=== PATIENT | female | born 1990 | race Caucasian/White ===

== ENCOUNTER 2021-12-26 05:35 | Emergency (ER) | payer BC, SELFPAY ==
[2021-12-26] VITALS (7 sets, daily range): BP systolic 118–141; BP diastolic 76–97; PULSE 85–99; RESP 18; TEMP 37.9; O2SAT 97–98
--- NOTE | 2021-12-26 06:12 | CRLHL7_ITS ---
For Patients: As a result of the Century Cures Act, medical imaging exams and procedure reports are released immediately into your electronic medical record. You may view this report before your referring provider. If you have questions, please contact your health care provider. Indication: Fever. Headache. Vomiting. Technique: Performed without IV contrast. Comparison: None available. Findings: No mass lesion or ventricular obstruction. No hemorrhage is identified. No brain edema or ischemia is localized on this exam. No encephalomalacia. Slight cerebellar tonsillar ectopia; no Chiari. The calvarium and skull base are unremarkable, with normal aeration of the visualized petrous temporal bones and paranasal sinuses on both sides. Impression: CT head within normal limits. Please note that all CT scans at this facility use dose modulation, iterative reconstruction, and/or weight-based dosing when appropriate to reduce radiation dose to as low as reasonably achievable. Dictated by Abhniav Hernandez MD @ 12/26/2021 7:45:57 AM (Electronically Signed)
--- NOTE | 2021-12-26 06:12 | CRLHL7_ITS ---
For Patients: As a result of the Cures Act, medical imaging exams and procedure reports are released immediately into your electronic medical record. You may view this report before your referring provider. If you have questions, please contact your health care provider. INDICATION: FEVER INDICATION: Fever. TECHNIQUE: Chest 1 view. COMPARISON: None FINDINGS: Cardiovascular and mediastinum: Heart size and vasculature are normal in caliber and appearance. Mediastinum is within normal limits. Lungs and pleural space: Lungs are clear. No sign of infiltrate or mass. No sign of pleural effusion. No pneumothorax. Bones and soft tissues: No significant findings. IMPRESSION: Lungs are clear. Dictated by Tiburcio Aparicio MD @ 12/26/2021 7:23:58 AM Dictated by: Tiburcio Aparicio MD @ 12/26/2021 07:24:07 (Electronically Signed)
--- NOTE | 2021-12-26 06:16 | ED.HA ---
HPI - Headache General Time Seen by Provider: 06:00 Date Seen: 12/26/21 Chief Complaint: Headache/Migraine Stated Complaint: vomiting/nausea/fever Time Seen by Provider: 12/26/21 05:50 Source: patient, family, RN notes reviewed and old records reviewed Mode of arrival: wheelchair Limitations: no limitations History of Present Illness HPI Narrative: Patient is a 31-year-old female previously healthy who comes to the emergency room for evaluation of fever and headache. Patient notes that over the past month she has had a headache when she stands up. She states this lasts about 30 seconds feels like somebody is squeezing her head and describes it as a sharp pressure. It then goes away. In the last week she notes that it has now started to occur randomly when she is walking. She describes dizziness when this happens. She I do ask her if the room is moving or if she is lightheaded and she says some of both. Last night patient was playing softball and she did not feel quite right. She states that she had the onset of chest tightness neck pain headache and fever. They noted that her temp was a 100.8? last night at 2100 hours she took Tylenol and went to bed. At 0430 hours she had a temp of a 101.8?. She notes that she feels like vomiting because she is dizzy. She states that the pain in her neck starts in her shoulders and upper back radiates into her neck and, to the back of her head and then comes around to the front of the head. She is describing as somebody squeezing her skull. She has had no visual changes. She does have a sore throat that started yesterday. To her knowledge she has not had any exposures to strep or COVID. She notes that her whole body aches but she denies any localized weakness. She has not had a history of headaches in the past. She denies any trauma. Related Data Home Medications Medication Instructions Recorded Confirmed No Known Home Medications 12/26/21 12/26/21 Allergies Allergy/AdvReac Type Severity Reaction Status Date / Time erythromycin base Allergy Verified 12/26/21 05:58 Review of Systems Status of ROS: Reports: 10 or more systems reviewed and unremarkable except as noted in History and below Const: Reports: fever, chills and fatigue Eyes: Denies: change in vision ENMT: Reports: throat pain, neck pain and dry mouth; Denies: throat swelling or nasal discharge Cardio: Reports: chest pain (Worsened with deep breathing); Denies: shortness of breath with exertion Resp: Denies: shortness of breath or cough GI: Reports: nausea and vomiting; Denies: abdominal pain or diarrhea : Denies: painful urination or urinary frequency Musculo: Reports: neck pain Integ/Breast: Denies: rash or redness Neuro: Reports: headache and dizziness; Denies: numbness in extremities or weakness in extremities Endo: Reports: fatigue Allergy/Immuno: Denies: throat swelling [facility] Medical History No significant past medical history Social History Smoking Status: Never smoker Do you use any of these nicotine containing products: None Second hand tobacco smoke exposure: No How often do you have a drink containing alcohol: 2-4 times a month How many standard drinks containing alcohol do you have on a typical day: 1 or 2 How often do you have six or more drinks on one occasion: Never AUDIT-C Alcohol total score: 2 Non-prescribed substance use: denies use service: No Exam Const: Vital Signs, click to edit/add: Vital Signs - 24 hr 12/26/21 05:48 12/26/21 08:12 12/26/21 08:42 Temperature 100.3 F H Pulse Rate [Right Pulse Oximeter] 97 87 Pulse Rate [orthos tatic lying Right Pulse Oximeter] 88 Pulse Rate [orthos tatic sitting Righ t Pulse Oximeter] Pulse Rate [orthos tatic standing Rig ht Pulse Oximeter] Respiratory Rate 18 18 Blood Pressure [Ri ght Upper Arm] 141/90 H 134/83 Blood Pressure [or thostatic lying Ri ght Arm] 132/76 Blood Pressure [or thostatic sitting Right Arm] Blood Pressure [or thostatic standing Right Arm] Pulse Oximetry 97 97 Oxygen Delivery Me thod Room Air Room Air 12/26/21 08:43 12/26/21 08:43 Temperature Pulse Rate [Right Pulse Oximeter] Pulse Rate [orthos tatic lying Right Pulse Oximeter] 88 Pulse Rate [orthos tatic sitting Righ t Pulse Oximeter] 91 91 Pulse Rate [orthos tatic standing Rig ht Pulse Oximeter] 99 Respiratory Rate Blood Pressure [Ri ght Upper Arm] Blood Pressure [or thostatic lying Ri ght Arm] 132/76 Blood Pressure [or thostatic sitting Right Arm] 118/83 118/83 Blood Pressure [or thostatic standing Right Arm] 119/88 Pulse Oximetry Oxygen Delivery Me thod Documenting provider has reviewed patient's vital signs: yes Common normals: average body habitus, oriented x3, no limitations and healthy appearing General appearance: cooperative, well kempt and in distress (Mild) mild; not ill appearing Orientation/consciousness: Yes awake, Yes oriented to person, Yes oriented to place and Yes oriented to time HENMT: Common normals: normocephalic, head/scalp atraumatic, hearing grossly normal bilaterally, external ears normal, EAC's normal, TM's normal bilaterally and external nose normal Head and scalp: normocephalic and atraumatic Face and sinus: normal facial exam and face symmetric Nose: external nose normal External ear: external ears normal External auditory canal: EAC's normal Tympanic membrane: TM's normal bilaterally Mouth: lip normal, tongue normal and other (Mild erythema posterior oropharynx) Eye: Common normals: PERRL General eye: normal appearance of both eyes and normal light reflex Pupil: PERRL Direct Ophthalmoscopy: normal light reflex Neck & C-Spine: Common normals: full ROM and supple General: trachea midline, lymphadenopathy (Mild upper anterior cervical) and tenderness Cervical spine: cervical ROM normal Other: Patient noted to have spontaneous movement of the neck. However became guarded with targeted examination of the neck. Resp: Common normals: normal respiratory effort and clear to auscultation bilaterally Effort & inspection: able to speak in complete sentences Auscultation: clear to auscultation bilaterally Cardio: Common normals: regular rate and regular rhythm Rate: regular rate Rhythm: regular rhythm GI: Common normals: soft to palpation and non-tender Palpation: soft Extremity: Common normals: normal to inspection Neuro: Common normals: oriented x3, moves all extremities, no focal motor deficits and no sensory deficits noted Sensorium/orientation: awake, oriented to person, oriented to place, oriented to time and other (Fatigued but nontoxic in appearance) Meningeal signs: no nuccal rigidity, no Brudzinski's sign and no Kernig's sign Speech: speech normal Psych: Common normals: mental status grossly normal, thought process normal and speech normal Appearance: well kempt Speech: normal speech Thought process: normal thought process Skin: Common normals: no rashes or lesions noted General skin exam: no rashes or lesions noted Course Course Hospital Course: At this time differential diagnosis does include meningitis, COVID, strep, intracranial pathology, mono other viral illness, pneumonia. Will obtain CBC, comprehensive panel, CRP, lactate, urinalysis, COVID, strep. Will place IV for fluids pain control and antiemetics. Chest x-ray and head CT have also been ordered. Reevaluation(s) Reevaluation #1: At this time headache is not changed. Nausea has improved. I spoke to patient about using Reglan and Benadryl as means of pain relief. Still awaiting laboratory values. Reevaluation #2: Patient notes headache is improved from a 9/10 to a 7/10. She has a negative straight leg raise. When I lift her right leg her right leg hurts. She has no neck pain however when she tries to do chin to chest she does have neck discomfort. At this time we talked about risks benefits of a lumbar puncture. In light of the fact that she is negative for COVID, chest x-ray looks good but she has ongoing fever will add West Nile, tick panel and blood cultures to her blood work Vital Signs Vital signs: Initial Vital Signs Temperature 100.3 F H 12/26/21 05:48 Temperature Source Temporal Artery Scan 12/26/21 05:48 Pulse Rate 97 12/26/21 05:48 Pulse Rhythm 12/26/21 05:48 Respiratory Rate 18 12/26/21 05:48 Blood Pressure 141/90 H 12/26/21 05:48 Blood Pressure Mean 107 12/26/21 05:48 Blood Pressure Position Supine 12/26/21 05:48 Pulse Oximetry 97 12/26/21 05:48 Oxygen Delivery Method 12/26/21 05:48 Vital Signs Temperature 100.3 F H 12/26/21 05:48 Pulse Rate 97 12/26/21 05:48 Respiratory Rate 18 12/26/21 05:48 Blood Pressure 141/90 H 12/26/21 05:48 Pulse Oximetry 97 12/26/21 05:48 Oxygen Delivery Method 12/26/21 05:48 Temperature 100.3 F H 12/26/21 05:48 Pulse Rate 88 12/26/21 08:43 Respiratory Rate 18 12/26/21 08:12 Blood Pressure 132/76 12/26/21 08:43 Pulse Oximetry 97 12/26/21 08:12 Oxygen Delivery Method 12/26/21 08:12 MDM - Headache MDM Narrative Medical decision making narrative: 1. Fever with headache body aches. I was very surprised that she did not test positive for COVID. At this time no evidence of pneumonia and a urinalysis is currently pending. At this time I do suggest lumbar puncture given her neck pain. Patient is somewhat improved but not entirely improved at this time. 2. Arrhythmia-patient appears to have a an independent pathway. Initially I thought this was bigeminy. We have asked for Cardiology consultation and currently waiting a phone call. 3. Sore throat-negative for strep and COVID is negative. 4. Disposition-this patient is signed out to my partner Dr. Knutson. Medical Records Attestation: I reviewed the patient's medical records. Lab Data Attestation: I reviewed the patient's lab results. Labs: Lab Results 12/26/21 12/26/21 12/26/21 Range/Units 06:12 06:12 06:12 WBC 10.41 (4.50-11.00) K/uL RBC 4.51 (4.00-5.20) m/uL Hgb 13.4 (12.0-16.0) gm/dL Hct 38.6 (33.0-51.0) % MCV 86 (80-100) fL MCH 30 (26-34) pg MCHC 35 (32-36) gm/dL RDW Coeff of Karla 11.8 (11.5-15.5) % Plt Count 285 (140-440) K/uL Neut % (Auto) 85.9 H (42.0-72.0) % Lymph % (Auto) 6.7 L (20-44) % [place] % (Auto) 6.3 (0.0-11.0) % Eos % (Auto) 0.0 (0.0-7.0) % Baso % (Auto) 0.3 (0.0-3.0) % Neut # (Auto) 8.90 H (1.7-7.0) K/uL Lymph # (Auto) 0.70 L (0.90-2.90) K/uL [place] # (Auto) 0.70 (0.00-0.90) K/UL Eos # (Auto) 0.00 (0.00-0.50) K/uL Baso # (Auto) 0.03 (0.00-0.30) K/uL Abs Immat Gran (auto) 0.08 (0.00-0.30) K/uL Sodium (135-149) mmol/L Potassium (3.6-5.1) mmol/L Chloride (96-114) mmol/L Carbon Dioxide (20-32) mmol/L BUN (5-24) mg/dL Creatinine (0.5-1.5) mg/dL Estimated GFR ml/min Glucose (60-115) mg/dL Venous Lactic Acid (Serial Order) Calcium (8.4-10.6) mg/dL Magnesium (1.5-2.6) mg/dL Total Bilirubin (0.1-1.5) mg/dL AST (12-35) U/L ALT (4-35) U/L Alkaline Phosphatase (40-150) U/L Total Creatine Kinase (41-117) U/L Troponin I (0.01-0.04) ng/mL C-Reactive Protein (0.5-1.0) mg/dL Total Protein (6.0-8.3) g/dL Albumin (3.3-5.0) g/dL SARS-CoV-2 (PCR) (Negative) Influenza Type A (PCR) (Negative) Influenza Type B (PCR) (Negative) Group A Strep DNA NOT DETECTED (No Detected) 12/26/21 12/26/21 12/26/21 Range/Units 06:12 06:16 06:25 WBC (4.50-11.00) K/uL RBC (4.00-5.20) m/uL Hgb (12.0-16.0) gm/dL Hct (33.0-51.0) % MCV (80-100) fL MCH (26-34) pg MCHC (32-36) gm/dL RDW Coeff of Karla (11.5-15.5) % Plt Count (140-440) K/uL Neut % (Auto) (42.0-72.0) % Lymph % (Auto) (20-44) % [place] % (Auto) (0.0-11.0) % Eos % (Auto) (0.0-7.0) % Baso % (Auto) (0.0-3.0) % Neut # (Auto) (1.7-7.0) K/uL Lymph # (Auto) (0.90-2.90) K/uL [place] # (Auto) (0.00-0.90) K/UL Eos # (Auto) (0.00-0.50) K/uL Baso # (Auto) (0.00-0.30) K/uL Abs Immat Gran (auto) (0.00-0.30) K/uL Sodium 135 (135-149) mmol/L Potassium 3.5 L (3.6-5.1) mmol/L Chloride 103 (96-114) mmol/L Carbon Dioxide 24 (20-32) mmol/L BUN 8 (5-24) mg/dL Creatinine 0.6 (0.5-1.5) mg/dL Estimated GFR 121 ml/min Glucose 124 H (60-115) mg/dL Venous Lactic Acid (Serial Order) Calcium 8.2 L (8.4-10.6) mg/dL Magnesium 1.7 (1.5-2.6) mg/dL Total Bilirubin 0.6 (0.1-1.5) mg/dL AST 41 H (12-35) U/L ALT 43 H (4-35) U/L Alkaline Phosphatase 79 (40-150) U/L Total Creatine Kinase (41-117) U/L Troponin I < 0.01 L (0.01-0.04) ng/mL C-Reactive Protein 1.6 H (0.5-1.0) mg/dL Total Protein 6.8 (6.0-8.3) g/dL Albumin 4.0 (3.3-5.0) g/dL SARS-CoV-2 (PCR) Negative SARS-CoV-2 (Negative) Influenza Type A (PCR) Negative PCR FLU A (Negative) Influenza Type B (PCR) Negative PCR FLU B (Negative) Group A Strep DNA (No Detected) 12/26/21 Range/Units 06:25 WBC (4.50-11.00) K/uL RBC (4.00-5.20) m/uL Hgb (12.0-16.0) gm/dL Hct (33.0-51.0) % MCV (80-100) fL MCH (26-34) pg MCHC (32-36) gm/dL RDW Coeff of Karla (11.5-15.5) % Plt Count (140-440) K/uL Neut % (Auto) (42.0-72.0) % Lymph % (Auto) (20-44) % [place] % (Auto) (0.0-11.0) % Eos % (Auto) (0.0-7.0) % Baso % (Auto) (0.0-3.0) % Neut # (Auto) (1.7-7.0) K/uL Lymph # (Auto) (0.90-2.90) K/uL [place] # (Auto) (0.00-0.90) K/UL Eos # (Auto) (0.00-0.50) K/uL Baso # (Auto) (0.00-0.30) K/uL Abs Immat Gran (auto) (0.00-0.30) K/uL Sodium (135-149) mmol/L Potassium (3.6-5.1) mmol/L Chloride (96-114) mmol/L Carbon Dioxide (20-32) mmol/L BUN (5-24) mg/dL Creatinine (0.5-1.5) mg/dL Estimated GFR ml/min Glucose (60-115) mg/dL Venous Lactic Acid (Serial Order) Calcium (8.4-10.6) mg/dL Magnesium (1.5-2.6) mg/dL Total Bilirubin (0.1-1.5) mg/dL AST (12-35) U/L ALT (4-35) U/L Alkaline Phosphatase (40-150) U/L Total Creatine Kinase 70 (41-117) U/L Troponin I (0.01-0.04) ng/mL C-Reactive Protein (0.5-1.0) mg/dL Total Protein (6.0-8.3) g/dL Albumin (3.3-5.0) g/dL SARS-CoV-2 (PCR) (Negative) Influenza Type A (PCR) (Negative) Influenza Type B (PCR) (Negative) Group A Strep DNA (No Detected) Imaging Data CT scan - head: Attestation: I have reviewed the pertinent imaging results. My impression: No acute findings Radiologist's impression: No acute findings Chest x-ray: Attestation: I have reviewed the pertinent imaging results. My impression: No obvious infiltrates Radiologist's impression: No obvious infiltrates ECG Data Attestation: I personally reviewed and interpreted this ECG as follows: ECG interpretation date: 12/26/21 Interpretation: Patient has an overriding sinus rhythm. No acute ST or T-wave changes. She then has a rather regular an independent downgoing narrow complex. Awaiting cardiac consultation. Discharge Plan Discharge Prescriptions: No Action No Known Home Medications
[2021-12-26] MEDS: ONDANSETRON 2 MG/ML inj 4 MG IVP (06:28)
[2021-12-26] MEDS: KETOROLAC 15 MG/ML inj IVP (06:28)
[2021-12-26] MEDS: 0.9 % SODIUM CHLORIDE 1000 ml 1,000 ML IV (06:28)
[2021-12-26 06:33] LABS: Basophils Absolute Auto 0.03 K/uL (0.00-0.30); Basophils Percent Auto 0.3 % (0.0-3.0); Hematocrit 38.6 % (33.0-51.0); Hemoglobin* 13.4 gm/dL (12.0-16.0); Immature Granulocytes Abs Auto 0.08 K/uL (0.00-0.30); Lymphocytes Percent Auto 6.7 % (20-44); Mean Corpuscular HGB Conc 35 gm/dL (32-36); Mean Corpuscular Hemoglobin 30 pg (26-34); Mean Corpuscular Volume 86 fL (80-100); Monocytes Percent Auto 6.3 % (0.0-11.0); Neutrophils Percent Auto 85.9 % (42.0-72.0); Platelet Count* 285 K/uL (140-440); RDW Coefficient of Variation % 11.8 % (11.5-15.5); Red Blood Count 4.51 m/uL (4.00-5.20); White Blood Count* 10.41 K/uL (4.50-11.00)
[2021-12-26 06:34] LABS: Lactate Sepsis w/Reflex* 1.3 mmol/L (0.5-1.9)
[2021-12-26 06:53] LABS: Chloride* 103 mmol/L (96-114); Potassium* 3.5 mmol/L (3.6-5.1); Sodium* 135 mmol/L (135-149)
[2021-12-26 06:55] LABS: Bilirubin Total* 0.6 mg/dL (0.1-1.5); Creatine Kinase* 70 U/L (41-117); Creatinine* 0.6 mg/dL (0.5-1.5); Estimated Glomerular Filt Rate 121 ml/min
[2021-12-26 06:56] LABS: Alanine Aminotransferase* 43 U/L (4-35); Alkaline Phosphatase* 79 U/L (40-150); Aspartate Amino Transferase* 41 U/L (12-35); Blood Urea Nitrogen* 8 mg/dL (5-24); Carbon Dioxide* 24 mmol/L (20-32); Total Protein* 6.8 g/dL (6.0-8.3)
[2021-12-26] MEDS: diphenhydrAMINE 50 MG/ML inj IVP (06:56)
[2021-12-26] MEDS: METOCLOPRAMIDE HCL 10 MG in 0.9 % SODIUM CHLORIDE 100 ml 100 ML 306 MG IVPB (06:56)
[2021-12-26 06:57] LABS: Calcium* 8.2 mg/dL (8.4-10.6); Glucose* 124 mg/dL (60-115)
[2021-12-26 06:58] LABS: Strep A DNA Probe* NOT DETECTED (No Detected)
[2021-12-26 06:59] LABS: C Reactive Protein* 1.6 mg/dL (0.5-1.0)
[2021-12-26 07:08] LABS: Slide Review Reflex No
[2021-12-26 07:10] LABS: PCR FLU A Negative PCR FLU A (Negative); PCR FLU B Negative PCR FLU B (Negative)
[2021-12-26 07:10] LABS: Troponin I* < 0.01 ng/mL (0.01-0.04)
[2021-12-26 07:26] LABS: SARS PCR* Negative SARS-CoV-2 (Negative)
[2021-12-26 07:27] LABS: Magnesium* 1.7 mg/dL (1.5-2.6)
--- NOTE | 2021-12-26 08:33 | ED.NURSE ---
pt declined 2nd blood culture draw
[2021-12-26 09:05] LABS: Mono Screen* Negative (Negative)
[2021-12-26] MEDS: KETAMINE HCL 20 MG in 0.9 % SODIUM CHLORIDE 100 ml 100 ML 300.6 MG IVPB (10:30)
--- NOTE | 2021-12-26 11:03 | CRLHL7_ITS ---
For Patients: As a result of the Century Cures Act, medical imaging exams and procedure reports are released immediately into your electronic medical record. You may view this report before your referring provider. If you have questions, please contact your health care provider. INDICATION: Orthostatic headaches. TECHNIQUE: Sagittal and axial T1, axial FLAIR, T2, diffusion-weighted, susceptibility weighted gadolinium-enhanced axial and coronal T1 weighted images. COMPARISON: CT brain on 10/26/2021. FINDINGS: There is an extra-axial, mildly heterogeneous, centrally enhancing mass centered within the right cerebellopontine angle cistern and porous acusticus with mild mass effect on the adjacent benja and anterior right cerebellar hemisphere. Enhancement does not extend into the lateral internal auditory canal. This mass measures approximately 2.8 cm transverse x 2.6 cm AP x 2.7 cm in cephalocaudal dimensions. Mild associated edema within the right cerebellar hemisphere. There is associated effacement and slight leftward displacement of the 4th ventricle shifted just to the left of midline. There is deformity of the lateral benja of the pre pontine cistern is intact. There is no tonsillar herniation. No in other enhancing intra-axial or extra-axial lesions. No evidence of recent ischemic infarction. No evidence of intracranial hemorrhage. Impression : 1. 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 2. Associated mass effect on the benja and cerebellum with slight leftward deviation of the 4th ventricle. No obstructive hydrocephalus. Dictated by Obed Adams MD @ 12/26/2021 12:38:41 PM (Electronically Signed)
--- NOTE | 2021-12-26 11:13 | ED.NURSE ---
up to bathroom, urine collected and sent
[2021-12-26 11:53] LABS: Appearance Urine Clear (Clear); Bilirubin Urine Negative (Negative); Blood Urine Trace-lysed (Negative); Color Urine Yellow (Yellow); Glucose Urine Negative (Negative); Ketones Urine Trace (Negative); Leukocyte Esterase Urine Negative (Negative); Nitrite Urine Negative (Negative); Protein Urine Negative (Negative); Urobilinogen Urine 0.2 (0.2-1.0)
[2021-12-26 11:54] LABS: HCG Qualitative* Negative (Negative)
[2021-12-26 12:04] LABS: Bacteria Urine Few; Mucus Urine Many; Squamous Epithelial Cell Urine Moderate (None-Few); WBC Urine 0-2 (0-5)
--- NOTE | 2021-12-26 12:26 | ED.NURSE ---
return from MRI. continues with headache and dizziness. at bedside.
[2021-12-26] MEDS: HYDROmorphone 0.5 mg/0.5 ml inj IVP (13:17)
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
[2021-12-29 10:53] LABS: Anaplasma phagocyt PCR Not Detected; Babesia microti by PCR Not Detected; Babesia species by PCR Not Detected; Ehrlichia chaffeensis by PCR Not Detected; Ehrlichia ewingii/canis by PCR Not Detected; Ehrlichia muris-like by PCR Not Detected
== END 2021-12-26 15:52 | disposition home or self-care (01) ==
PROVIDERS: Family Medicine; Emergency Provider Family Medicine; PCP Family Medicine
DX: R50.9 Fever, unspecified (principal); J02.9 Acute pharyngitis, unspecified; I49.8 Other specified cardiac arrhythmias
CPT/HCPCS: 36415; 70450; 70553; 71045; 80053; 81001; 82550; 83735; 84484; 84703; 85025; 86140; 86308; 86789; 87040; 87086; 87502; 87635; 87651; 87798; 93005; 93225; 93226; 96365; 96375; 99285; A9575; J1170; J1200; J1885; J2405; J2765; J3490; J7030

== ENCOUNTER 2024-08-04 19:01 | Emergency (ER) | payer OTHER, SELFPAY ==
--- OUTSIDE RECORDS SUMMARY | 2024-08-04 19:04 | XMS_ITS | Encounter Summary ---
Author Organization [facility] Address [address] [place] [id number] Care Team Providers Care Campaign Advisor Name Role Phone Rosaura Enriquez MD Unavailable [phone] Mare Wilkes MD Unavailable [phone] Rosaura Enriquez MD Unavailable [phone] Mare Wilkes MD Unavailable [phone] Nano Panda MD Primary Care Provider [phone] Encounter Details Date Type Department Care Team (Late st Contact Info) Description 06/04/2023 [facility] Medical Advice [facility] [address] [id number] Leia Barber RN Social History Tobacco Use Types Packs/Day Years Used Date Smoking Tobacco: Never Smokeless Tobacco: Never Alcohol Use Standard Drinks/Week Comments No 0 (1 standard drink = 0.6 oz pur e alcohol) PHQ-2 Answer Date Recorded PHQ-2 Score 0 12/25/2018 Adolescent Education Answer Date Record ed Getting School Help Needed Not on file 01/25 Comments No Sex and Gender Information Value Date Recorded Sex Assigned at Female 03/29/2021 12:51 PM ONLINE ADVERTISING MANAGER Legal Sex Female 5:15 AM ONLINE ADVERTISING MANAGER Gender Identity Female 03/29/2021 12:51 PM ONLINE ADVERTISING MANAGER Sexual Orientation Straight 03/29/2021 12 :51 PM ONLINE ADVERTISING MANAGER documented as of this encounter Plan of Treatment Not on file documented as of this encounter Visit Diagnoses Not on filedocumented in this encounter Additional Health Concerns Assessment Noted Time PHQ-9 Depression Total Score: 3 12/26/19 19 2:57 PM CDT documented as of this encounter Care Teams Campaign Advisor Relationship Specialty Start Date End Date Nano Panda MD [address] [place] [address] PCP - General Family Medicine 05/14/23 Rosaura Enriquez MD [address] [place] [address] Facial Plastic and Reconstructive Surgery 11/23/22 Mare Wilkes MD [address] [place] [id number] Physician Psychiatry & Neurology - Child & Adolescent Psychiatry 11/23/22 Rosaura Enriquez MD [address] [place] [address] Assigned Surgical Provider 11/24/22 Mare Wilkes MD [address] [place] [id number] Assigned Neuroscience Provider 01/05/23 05/27/24 documented as of this encounter
--- OUTSIDE RECORDS SUMMARY | 2024-08-04 19:04 | XMS_ITS | Clinical Summary ---
Author Organization [facility] Address [address] [place] [address] Care Team Providers Care Education Intern Name Role Phone Rosaura Enriquez MD Unavailable [phone] Mare Wilkes MD Unavailable [phone] Rosaura Enriquez MD Unavailable [phone] Nano Panda MD Primary Care Provider [phone] Allergies Active Allergy Reactions Criticality Noted Date Comments Copper 11/20/2022 Erythromycin 03/26/2011 Minocycline 11/20/2022 Medications * This document contains information received from the source organization and may not represent a complete record from that organization. 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 Date Type Department Care Team Description 05/18/2024 Travel from Last 3 Months Family History Medical History Relation Comments Hip fracture Maternal Aunt Osteoporosis Maternal Aunt Osteoporosis Maternal Grandfather Thyroid Disease Maternal Grandfather Ovarian Cancer Maternal Grandmother Heart Disease Paternal Grandfather Hyperlipidemia Paternal Grandfather Hypertension Paternal Grandfather Relation Status Comments Maternal Aunt Maternal Grandfather Maternal Grandmother Paternal Grandfather Social History Tobacco Use Types Packs/Day Years [...] Sex Assigned at Female 03/29/2021 12:51 PM TRAINING ENGINEER Legal Sex Female 5:15 AM TRAINING ENGINEER Gender Identity Female 03/29/2021 12:51 PM TRAINING ENGINEER Sexual Orientation Straight 03/29/2021 12 :51 PM TRAINING ENGINEER Last Filed Vital Signs Vital Sign Reading Time Taken Comments Blood Pressure 115/78 05/28/2023 8:02 PM TRAINING ENGINEER Pulse 92 05/28/2023 8:02 PM TRAINING ENGINEER Temperature 37.1 C (98.7 F) 05/28/2023 8:02 PM TRAINING ENGINEER Respiratory Rate 12 05/28/2023 8:02 PM TRAINING ENGINEER Oxygen Saturation 95% 05/28/2023 8:02 PM TRAINING ENGINEER Inhaled Oxygen Concentration - - Weight 72.7 kg (160 lb 4.4 oz) 05/28/2023 9:28 A M TRAINING ENGINEER Height 167.6 cm (5' 6) 05/28/2023 9:28 AM TRAINING ENGINEER Body Mass Index 25.87 05/28/2023 9:28 AM TRAINING ENGINEER Plan of Treatment Health Maintenance Due Date Last Done Comments ADVANCE CARE PLANNING 1988 ANNUAL REVIEW OF HM ORDERS 1988 YEARLY PREVENTIVE VISIT 10/12/1991 HEPATITIS C SCREENING 2006 DIABETES SCREENING 03/05/2019 03/05/2016 PAP 05/14/2022 05/14/2019, 09/11/2016 DTAP/TDAP/TD IMMUNIZATION (7 - Td or Tdap) 10/08/2022 10/08/2012, 11/11/2001, 12/15/1993, Additional history exists COVID-19 Vaccine ( season) 2024 08/08/2021, 07/11/2021 INFLUENZA VACCINE (#1) 2024 02/01/2011, 2008 PHQ-2 (once per calendar year) 2024 12/25/2018, 12/25/2018 ZOSTER IMMUNIZATION (1 of 2) 2038 HEPATITIS B IMMUNIZATION Completed 002, 05/27/2001, 10/31/2000 HIV SCREENING Completed 01/02/2011 HPV IMMUNIZATION Aged Out No longer e ligible based on patient's age to complete this topic MENINGITIS IMMUNIZATION Aged Out No l onger eligible based on patient's age to complete this topic Pneumococcal Vaccine: Pediatrics (0 to 5 Years) and At-Risk Patients (6 to 49 Years) Aged Out No longer eligible based on patient's age to complete this topic Medical Devices Implanted Type Area Application Developer Manager Device Identifier Shelf Expiration Date Model / Serial / Lot Duraflex Suturable Dural Graft 4cm X 5cm Implanted:Qty: 1 on 05/28/2023 by Rosaura Enriquez MD at [facility] Graft Right: Face [employer] [id number] 12/04/2027 [id number] / [id number] / [id number] Eye Imp Lid Weight Lid-Chain [place] 1.0gm [id number] - [id number] Implanted:Qty: 1 on 05/28/2023 by Rosaura Enriquez MD at [facility] Lens/Eye Implant Right: Eye [employer] 10/31/2027 [id number] / / [id number] Procedures Procedure Name Priority Date/Time Associated Diagnosis Comments [place] EVALUATION OF SPEECH SOUND PRODUCTION Routine 05/19/2024 2:32 PM TRAINING ENGINEER 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 Dysarthria Oral phase dysphagia ABSTRACT PAP (HIM EXTERNAL RESULT) Routine 09/11/2016 COMPREHENSIVE METABOLIC PANEL STAT 03/05/2016 2:34 PM CDT from Last 3 Months or Most Recently Relevant to Health Maintenance Results * ABSTRACT PAP-NO CHARGE (09/11/2016) PAP-ABSTRACT See Scanned Document [facility] Comment:NIL 09/11/2016 Narrative [facility] - 09/11/2016 See Care Everywhere-[facility] us Provider Outside LAB - HIM EXTERNAL RESULT Final Result [facility] [address] * (ABNORMAL) Comprehensive metabolic panel (03/05/2016 2:34 PM CDT) Sodium 138 133 - 144 mmol/L [facility] Potassium 3.5 3.4 - 5.3 mmol/L [facility] Chloride 106 94 - 109 mmol/L [facility] Carbon Dioxide 24 20 - 32 mmol/L [facility] Anion Gap 8 3 - 14 mmol/L [facility] Glucose 88 70 - 99 mg/dL [facility] Urea Nitrogen 8 7 - 30 mg/dL [facility] Creatinine 0.67 0.52 - 1.04 mg/dL [facility] GFR Estimate >90 Non GFR Calc >60 mL/min/1. 7m2 [facility] GFR Estimate If Black >90 GFR Calc >60 mL/min/1. 7m2 [facility] Calcium 8.2(L) 8.5 - 10.1 mg/dL [facility] Bilirubin Total 0.4 0.2 - 1.3 mg/dL [facility] Albumin 3.8 3.4 - 5.0 g/dL [facility] Protein Total 7.0 6.8 - 8.8 g/dL [facility] Alkaline Phosphatase 68 40 - 150 U/L [facility] ALT 21 0 - 50 U/L [facility] AST 17 0 - 45 U/L [facility] Blood specimen (specimen) 03/05/2016 2:34 PM CDT 03/05/2016 2:48 PM CDT us Jayla Duarte MD LAB - BLOOD ORDERABLES Final Res ult [facility] [address] [place] [address], [facility] [phone] from Last 3 Months or Most Recently Relevant to Health Maintenance Insurance [employer] INSURED WC RISK ADMINSTRATION [facility] [employer] Care Teams Education Intern Relationship Specialty Start Date End Date Nano Panda MD [address] [place] [address] PCP - General Family Medicine 05/14/23 Rosaura Enriquez MD [address] [place] [address] Facial Plastic and Reconstructive Surgery 11/23/22 Mare Wilkes MD [address] [place] [address] [id number] Physician Psychiatry & Neurology - Child & Adolescent Psychiatry 11/23/22 Rosaura Enriquez MD [address] [place] [address] [id number] Assigned Surgical Provider 11/24/22
--- OUTSIDE RECORDS SUMMARY | 2024-08-04 19:04 | XMS_ITS | Clinical Summary ---
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 Blood product orders will be delayed. Draw one red top and two purple top tubes for all Type and Screen/Type and crossmatch orders Copper Rash 01/04/2009 Erythromycin GI Upset 11/19/2006 Would prefer not have it due to GI issues Minocycline Itching 12/05/2010 Medications acetaminophen (TYLENOL EXTRA STRGTH) 500 mg tabletIndications :Acute postoperative pain Take 1000 mg four times daily x another 7 days then take 1000 mg every 6 hrs as needed foe headaches. Max acetaminophen dose: 4000mg in 24 hrs. 0 04/02/20 22 Active artificial tears ophthalmic ointment, 83%-15%, (ARTIFICIAL TEARS OINTMENT)Indicati ons:Postoperative state,7th nerve palsy Apply 1 Strip to right eye every 2 hours if needed for Dry Eyes. Apply at night time. 3.5 g 04/02/20 22 Active artificial tears, peg 400-propylene glycol, (SYSTANE) 0.4-0.3 % drop ophthalmicIndicat ions:Postoperativ e state,Dry eye Place 1-2 Drops into both eyes every hour if needed for Dry Eyes. Pls leave at bedside. 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 Anxiety 11/30/2020 Major depressive disorder, recurrent, moderate 0 11/30/2020 Uncomplicated alcohol dependence 11/30/2020 ASCUS with positive high risk HPV cervical 12/12 Overview (05/26/2019): 11/2010 ASCUS/HPV+ 12/2010 [place] No biopsies 10/2012 NIL 10/2013 NIL 05/2020 NIL/HPV negative Plan: Routine screening, pap/HPV due 05/2024 Resolved Problems Problem Noted Date Diagnosed Date Resolved Date Sterilization 12/21/2013 03/08/2022 Endometritis following delivery 06/04/2011 10/02/2013 PPH ( hemorrhage) 06/01/2011 10/02/2013 premature rupture of membranes 05/21/2011 10/02/2013 Rh negative, antepartum 05/21/201109/05 High-risk 05/21/2011 10/03/19 14 GBS (group B Streptococcus c arrier), +RV culture, currently 05/20/2011 10/02/2013 Supervision of other normal 01/30/2011 05/21/2011 Other acne 11/20/2010 10/06/2013 Adjustment reaction with anx iety and depression 07/31/2010 10/02/2013 Depressive disorder, not elsewhere classified 08/01/19 11 10/02/2013 Major depressive disorder, r ecurrent episode, unspecified 01/01/2008 10/06/2013 Supervision of normal first 12/26/2007 01/31/2009 History of chicken pox 10/05/199110/02 Overview (09/14/2009): Phone call per Mother. Immunizations Immunization Administration Dates Next Due COVID-19 vaccine ([employer] 30mcg/0.3mL) 12YO+ XIOMARA-SUCROSE PF, MDV 08/08/2021,07/11/2021 DTP 08/11/1990, 9,02/01/1989,1988 DTaP 12/15/1993 Hepatitis B (Peds) 11/11/2001,05/27/2001, 001 Hib Conjugate, Unspecified 08/18/1990 Influenza, IIV3 (Age >=3 years) 02/01/2011,01/31 MMR 07/11/2021,10/31/1990,08/11/1990 Oral Polio Vaccine 12/15/1993, 1,02/01/1989,1988 Td (Age >=7 Years) 11/11/2001 Tdap 10/08/2012 Tuberculin (PPD) 09/21/2015 Family History Medical History Relation Name Comments Alcoholism Father Obesity Father Cancer Maternal Grandmother uterine Cancer-ovarian Maternal Grandmother Cancer Mother Basal Cell Depression Mother Migraines Mother Psychiatric illness Mother Depressi on Heart Disease Paternal Grandfather Hypertension Paternal Grandfather GI Disease Paternal Grandmother Hypertension Paternal Grandmother Thyroid Disease Paternal Grandmother Alcoholism Sister 2 Depression Sister 2 Migraines Sister 2 Obesity Sister 2 Psychiatric illness Sister 2 Undiagno sed but may have depression Relation Name Status Comments Father Alive Maternal Grandfather Maternal Grandmother Mother Alive Paternal Grandfather Paternal Grandmother Sister 1 Alive Sister 2 Son Alive Social History Tobacco Use Types Packs/Day Years Used Date Smoking Tobacco: Former Cigarettes 0 11/19/2007 - 11/18/2010 Smokeless Tobacco: Never Tobacco Cessation:Counseling Given: Yes Alcohol Use Standard Drinks/Week Comments Not Currently 0 (1 standard drink = 0.6 oz pur e alcohol) PHQ-2 Answer Date Recorded PHQ-2 TOTAL SCORE 0 01/05/2021 Social Connections Answer Date Recorded Frequency of Communication with Friends and Fami ly Not on file 05/06/2021 Financial Resource Strain Answer Date R ecorded Difficulty of Paying Living Expenses Not on file 05/06/2021 Difficulty of Paying Living Expenses Not on file 05/06/2021 Comments No Sex and Gender Information Value Date Recorded Sex Assigned at Female 11/17/2019 12:04 PM CDT Legal Sex Female 6:05 AM ENTRY DRIVER OPERATOR Gender Identity Female 11/17/2019 12:04 PM CDT Sexual Orientation Straight 11/17/2019 12 :04 PM CDT 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 Not on file Not on file Not on file Obstetrics History Para Term AB IAB SAB Ectopic Multiple Livin g Live Births 2 2 1 1 0 0 0 0 0 2 2 Date Outcome GA Total Labor Labor/2nd/3rd Weight Sex Type Anes PTL Karlene A1 A5 Name Clin 8 Term M VAGINA L VACU N Livin g Raúl en Comments:Term 2011 30w 1d F Vag Epidur al Y Livin g 2 6 Dawn dominique barth Delivery Location:[facility] Comments:PPROM; PPH; E ndometritis after delivery Last Filed Vital Signs Vital Sign Reading Time Taken Comments Blood Pressure 112/76 05/10/2023 7:39 AM ENTRY DRIVER OPERATOR Pulse 73 05/10/2023 7:39 AM ENTRY DRIVER OPERATOR Temperature 36.7 C (98.1 F) 09/07/2022 12:50 PM CDT Respiratory Rate 16 09/07/2022 12:50 PM CDT Oxygen Saturation 96% 05/10/2023 7:39 AM ENTRY DRIVER OPERATOR Inhaled Oxygen Concentration - - Weight 73.5 kg (162 lb) 05/10/2023 7:39 AM ENTRY DRIVER OPERATOR Height 168 cm (5' 6.14) 05/10/2023 7:39 AM ENTRY DRIVER OPERATOR Body Mass Index 26.04 05/10/2023 7:39 AM ENTRY DRIVER OPERATOR Plan of Treatment Health Maintenance Due Date Last Done Comments Hepatitis C screening for ag e 18-79 2006 Pneumococcal series for age 6-49 (1 of 2 - PCV) 10/12/2007 Depression screening for age 12+ 01/05/2022 01/05/2021, 11/30/2020, 11/30/2020, Additional history exists Tetanus booster 10/08/2022 10/08/2012, 11/11/2001 COVID-19 vaccine series ( season) 2024 08/08/2021, 07/11/2021 Influenza Vaccine (#1) 2024 02/01/2011, 2008 BMI (ht and wt on same day) for age 18+ 05/10/2024 05/10/2023, 06/14/2022, 05/01/2022, Additional history exists Pap test for age 21-65 05/14/2024 , 05/14/2019, 09/11/2016, Additional history exists HIV for age 15-65 Completed 01/02/2011, 09/09/2007 Tdap Completed 10/08/2012 Medical Devices Implanted Type Area Computer Repair Instructor Device Identifier Shelf Expiration Date Model / Serial / Lot Screw Neuro 4mm Matrixneuro Slf Drill Titnm - [id number] Implanted:Qty: 8 on 03/19/2022 by Melissa De Leon MBChB at [facility] Right: Cranium Leilani [employer] Leilani [employer]an CMF [id number] 4.01 / / Plate Facial 70x1.5mm Synthes Midface Mesh Contourable - [id number] Implanted:Qty: 1 on 03/19/2022 by Melissa De Leon MBChB at [facility] Right: [employer] J [employer] J [employer] CMF [id number] / / Procedures Procedure Name Priority Date/Time Associated Diagnosis Comments SUPERVISOR ELECTRONICS TESTING THIN PREP PAP SCREEN IMAGED Routine 05/14/2019 9:50 AM ENTRY DRIVER OPERATOR Pap smear for cervical cancer screening ANTI HIV 1/2 Routine 01/02/2011 3:35 PM CDT Supervision of other normal (HC) from Last 3 Months or Most Recently Relevant to Health Maintenance Results * SUPERVISOR ELECTRONICS TESTING THIN PREP PAP SCREEN IMAGED (05/14/2019 9:50 AM ENTRY DRIVER OPERATOR) Case Report Gynecologic Cytology Report Case: [id number] Authorizing Provider: Mary Lopez PA Collected: 05/14/2019 0950 Ordering Location: [facility] Received: 05/14/2019 1017 Clinic First Screen: Li Mirza Specimen: SUPERVISOR ELECTRONICS TESTING ThinPrep Vial Screening, Cervical 05/25/2019 12:12 PM ENTRY DRIVER OPERATOR [facility] INTERPRETATION/ RESULT NEGATIVE FOR INTRAEPITHELIAL LESION OR MALIGNANCY (NIL) (none) 05/25/2019 12:12 PM ENTRY DRIVER OPERATOR [facility] at 1212 ENTRY DRIVER OPERATOR SPECIMEN ADEQUACY Satisfactory for evaluation Endocervical component present 05/25/2019 12:12 PM ENTRY DRIVER OPERATOR [facility] HPV REQUEST HPV and PAP 05/25/2019 12:12 PM ENTRY DRIVER OPERATOR [facility] Date of LMP 04/27/19 05/25/2019 12:12 PM ENTRY DRIVER OPERATOR [facility] Last Pap Date 09/11/16 05/25/2019 12:12 PM ENTRY DRIVER OPERATOR [facility] Last Pap Result NIL 0 12:12 PM ENTRY DRIVER OPERATOR [facility] Abnormal Pap or [place] Bx in last 5 years No 05/25/2019 12:12 PM ENTRY DRIVER OPERATOR [facility] Menstrual Status Regular Periods 05/25/2019 12:12 PM ENTRY DRIVER OPERATOR [facility] [place] Bx Done Today No 05/25/2019 12:12 PM ENTRY DRIVER OPERATOR [facility] Additional Information None given 05/25/2019 12:12 PM ENTRY DRIVER OPERATOR [facility] Comment: Cytology is screened at [facility] - [address], [place] [address] and [facility] - [address], [place] [address] and [facility] - [address] [place] [address] Interpreted at [facility] - [address], [place] [address] Automated Review Successful 05/25/2019 12:12 PM ENTRY DRIVER OPERATOR [facility] Comment:Specimen processed s uccessfully by automated bi report developer device, ThinPrep Imaging System, [employer] ANCILLARY TESTING SUPERVISOR ELECTRONICS TESTING HPV Ordered, Please see separate report 05/25/2019 12:12 PM ENTRY DRIVER OPERATOR [facility] Note The pap test is a screening technique, not a diagnostic procedure. It is used primarily to screen for squamous cancers and precursor lesions. Published studies have shown that it is subject to both false negative and false positive results. The pap test should not be used as the sole means to diagnose or exclude pre-malignant and malignant lesions. 05/25/2019 12:12 PM ENTRY DRIVER OPERATOR [facility] Other (Cervical) Non-Blood / Unknown 05/14/2019 9:50 AM ENTRY DRIVER OPERATOR 05/14/2019 10:17 AM ENTRY DRIVER OPERATOR us Mary [facility]CYTOLOGY Final R esult [facility] [address] [place] [address], [place] * ANTI HIV 1/2 (01/02/2011 3:35 PM CDT) ANTI HIV 1/2 Non-reacti ve [facility] Blood specimen (specimen) BLOOD SPECIMEN / Unknown 01/02/2011 3:35 PM CDT 01/02/2011 3:29 PM CDT us Nano Panda MD SEND OUTS Fi nal Result [facility] INTERNAL ZIP [address] [address] from Last 3 Months or Most Recently Relevant to Health Maintenance Insurance [id number] [place] [address] [place] [address] [phone] (Home) ATTN: BRIANDA FLORES [address] [place] [address] * Guarantor: [employer] [facility] Account Type Relation to Patient Date of Phone Billing Address [facility] [address] [place] [address] * Guarantor: [employer] Account Type Relation to Patient Date of Phone Billing Address [facility] [address] [place] [address] Advance Directives Documents on File Type Date Recorded Patient Surface Hydrologist Expl anation Healthcare Directive 12/21/2013 6:03 AM * Full Code (Latest Code Status on File) Date Activated Date Inactivated Comments 03/28/2022 12:33 PM 04/02/2022 6:13 PM Question Answer Comments Code Status Discussion: Reviewed Preferences * Full Code Date Activated Date Inactivated Comments 03/19/2022 5:48 AM 03/28/2022 12:05 PM Question Answer Comments Code Status Discussion: Reviewed Preferences * Full Code Date Activated Date Inactivated Comments 12/21/2013 6:15 AM 12/21/2013 1:53 PM * Full Code Date Activated Date Inactivated Comments 05/20/2011 7:36 PM 06/03/2011 3:40 PM * Full Code Date Activated Date Inactivated Comments 07/31/2010 1:10 AM 08/02/2010 8:30 PM Care Teams Senior Facilities Manager Relationship Specialty Start Date End Date Nano Panda MD [address] [place] [address] PCP - General Family Practice 02/17/14
--- OUTSIDE RECORDS SUMMARY | 2024-08-04 19:04 | XMS_ITS | Encounter Summary ---
Author Organization [facility] Address [address] [place] [address] Care Team Providers Care Platform Mill Supervisor Name Role Phone Nano Panda MD Primary Care Provider [phone] Rosaura Enriquez MD Unavailable [phone] Mare Wilkes MD Unavailable [phone] Rosaura Enriquez MD Unavailable [phone] Mare Wilkes MD Unavailable [phone] Nano Panda MD Primary Care Provider [phone] Encounter Details Date Type Department Care Team (Late st Contact Info) Description 11/27/2022 MyC Medical Advice [facility] [address] [place] [address] Whitney Olvera Social History Tobacco Use Types Packs/Day Years Used Date Smoking Tobacco: Never Smokeless Tobacco: Never Alcohol Use Standard Drinks/Week Comments No 0 (1 standard drink = 0.6 oz pur e alcohol) PHQ-2 Answer Date Recorded PHQ-2 Score 0 12/25/2018 Comments Unknown Sex and Gender Information Value Date Recorded Sex Assigned at Female 03/29/2021 12:51 PM STAFF SCIENTIST Legal Sex Female 5:15 AM STAFF SCIENTIST Gender Identity Female 03/29/2021 12:51 PM STAFF SCIENTIST Sexual Orientation Straight 03/29/2021 12 :51 PM STAFF SCIENTIST COVID-19 Exposure Response Date Recorded In the last 10 days, have yo u been in contact with someone who was confirmed or suspected to have Coronavirus/COVID-19? Unable to assess 11/23/2022 9:26 AM CDT documented as of this encounter Plan of Treatment Not on file documented as of this encounter Visit Diagnoses Not on filedocumented in this encounter Additional Health Concerns Assessment Noted Time PHQ-9 Depression Total Score: 3 12/26/19 19 2:57 PM CDT documented as of this encounter Care Teams Platform Mill Supervisor Relationship Specialty Start Date End Date Nano Panda MD PCP - General Family Practice 03/05/16 05/13/23 Nano Panda MD [address] [place] [address] PCP - General Family Medicine 05/14/23 Rosaura Enriquez MD [address] [place] [address] Facial Plastic and Reconstructive Surgery 11/23/22 Mare Wilkes MD [address] [place] [address] Physician Psychiatry & Neurology - Child & Adolescent Psychiatry 11/23/22 Rosaura Enriquez MD [address] [place] [address] Assigned Surgical Provider 11/24/22 Mare Wilkes MD [address] [place] [address] Assigned Neuroscience Provider 01/05/23 05/27/24 documented as of this encounter
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
[2024-08-04 19:11] VITALS: BP 149/99; PULSE 86; RESP 16; TEMP 36.6; O2SAT 95; BMI 23.4
[2024-08-04 19:20] LABS: Basophils Absolute Auto 0.03 K/uL (0.00-0.30); Basophils Percent Auto 0.5 % (0.0-3.0); Eosinophils Absolute Auto 0.09 K/uL (0.00-0.50); Eosinophils Percent Auto 1.5 % (0.0-7.0); Hematocrit 43.3 % (33.0-51.0); Immature Granulocytes Abs Auto 0.03 K/uL (0.00-0.30); Immature Granulocytes Pct Auto 0.5 %; Lymphocytes Absolute Auto 1.82 K/uL (0.90-2.90); Lymphocytes Percent Auto 30.7 % (20-44); Mean Corpuscular HGB Conc 35 gm/dL (32-36); Mean Corpuscular Hemoglobin 30 pg (26-34); Mean Corpuscular Volume 87 fL (80-100); Neutrophils Absolute Auto 3.31 K/uL (1.7-7.0); Neutrophils Percent Auto 55.8 % (42.0-72.0); Platelet Count* 219 K/uL (140-440); RDW Coefficient of Variation % 11.7 % (11.5-15.5); Red Blood Count 4.96 m/uL (4.00-5.20); White Blood Count* 5.93 K/uL (4.50-11.00)
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
[2024-08-04 19:23] LABS: Slide Review Reflex No
[2024-08-04 19:31] VITALS: BP 138/101; PULSE 85; RESP 16; TEMP 36.7; O2SAT 98
[2024-08-04 19:31] LABS: Chloride* 105 mmol/L (96-114); Potassium* 4.1 mmol/L (3.6-5.1); Sodium* 137 mmol/L (135-149)
[2024-08-04 19:34] LABS: Anion Gap 11 mEq/L (7-15); Blood Urea Nitrogen* 4 mg/dL (5-24); Calcium* 9.4 mg/dL (8.4-10.6); Carbon Dioxide* 21 mmol/L (20-32); Creatinine* 0.4 mg/dL (0.5-1.5); Est. Creatinine Clearance* 183.77; Estimated Glomerular Filt Rate 132 ml/min; Glucose* 83 mg/dL (60-115)
[2024-08-04 19:46] LABS: Troponin I* 0.02 ng/mL (0.01-0.04)
[2024-08-04] MEDS: KETOROLAC 15 MG/ML inj IVP (19:49)
[2024-08-04 20:01] VITALS: BP 140/99; PULSE 82; RESP 16; O2SAT 98
--- OUTSIDE RECORDS SUMMARY | 2024-08-04 20:17 | XMS_ITS | Encounter Summary ---
Author Organization [facility] Address [address] [place] [address] Care Team Providers Care Nurse Research Name Role Phone Rosaura Enriquez MD Unavailable [phone] Mare Wilkes MD Unavailable [phone] Rosaura Enriquez MD Unavailable [phone] Mare Wilkes MD Unavailable [phone] Nano Panda MD Primary Care Provider [phone] Encounter Details Date Type Department Care Team (Late st Contact Info) Description 06/04[place]2023 [facility] [place] [facility] [address] [address] Leia Barber RN Social History [...] Sex Assigned at Female 03/29/2021 12:51 PM MEDICAL RECORD 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 Legal Sex Female 5:15 AM MEDICAL RECORD 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 Gender Identity Female 03/29/2021 12:51 PM MEDICAL RECORD 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 Sexual Orientation Straight 03/29/2021 12 :51 PM MEDICAL RECORD 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 documented as of this encounter Plan of Treatment Not on file documented as of this encounter Visit Diagnoses Not on filedocumented in this encounter Additional Health Concerns Assessment Noted Time PHQ-9 Depression Total Score: 3 12/26/19 19 2:57 PM CDT documented as of this encounter Care Teams Nurse Research Relationship Specialty Start Date End Date Nano Panda MD [address] [place] [address] PCP - General Family Medicine 05/14/23 Rosaura Enriquez MD [address] [place] [address] Facial Plastic and Reconstructive Surgery 11/23/22 Mare Wilkes MD [address] [place] [address] Physician Psychiatry & Neurology - Child & Adolescent Psychiatry 11/23/22 Rosaura Enriquez MD [address] [place] [address] Assigned Surgical Provider 11/24/22 Mare Wilkse MD [address] [place] [address] Assigned Neuroscience Provider 01/05/23 05/27/24 documented as of this encounter
--- OUTSIDE RECORDS SUMMARY | 2024-08-04 20:18 | XMS_ITS | Encounter Summary ---
Author Organization [facility] Address [address] [place] [address] Care Team Providers Care Manager Of Case Management Name Role Phone Nano Panda MD Primary Care Provider [phone] Rosaura Enriquez MD Unavailable [phone] Mare Wilkes MD Unavailable [phone] Rosaura Enriquez MD Unavailable [phone] Mare Wilkes MD Unavailable [phone] Nano Panda MD Primary Care Provider [phone] Encounter Details Date Type Department Care Team (Late st Contact Info) Description 11/27/2022 [facility] Medical Advice [facility] [address] [place] [address] Whitney Olvera Social History Tobacco Use Types Packs/Day Years Used Date Smoking Tobacco: Never Smokeless Tobacco: Never Alcohol Use Standard Drinks/Week Comments No 0 (1 standard drink = 0.6 oz pur e alcohol) PHQ-2 Answer Date Recorded PHQ-2 Score 0 12/25/2018 Comments Unknown Sex and Gender Information Value Date Recorded Sex Assigned at Female 03/29/2021 12:51 PM ASSURANCE ANALYST Legal Sex Female 5:15 AM ASSURANCE ANALYST Gender Identity Female 03/29/2021 12:51 PM ASSURANCE ANALYST Sexual Orientation Straight 03/29/2021 12 :51 PM ASSURANCE ANALYST COVID-19 Exposure Response Date Recorded In the [...] documented as of this encounter Care Teams Manager Of Case Management Relationship Specialty Start Date End Date Nano Panda MD PCP - General Family Practice 03/05/16 05/13/23 Nano Panda MD [address] [place] [address] PCP - General Family Medicine 05/14/23 Rosaura Enriquez MD [address] [place] [address] Facial Plastic and Reconstructive Surgery 11/23/22 Mare Wilkes MD [address] [place] [address] Physician Psychiatry & Neurology - Child & Adolescent Psychiatry 11/23/22 Rosaura Enriquez MD [address] [place] [address] Assigned Surgical Provider 11/24/22 Mare Wilkes MD [address] [place] [address] Assigned Neuroscience Provider 01/05/23 05/27/24 documented as of this encounter
--- OUTSIDE RECORDS SUMMARY | 2024-08-04 20:18 | XMS_ITS | Clinical Summary ---
Author Organization [facility] Address [address] [place] [address] Care Team Providers Care Hospitalist Nocturnist Physician Name Role Phone Rosaura Enriquez MD Unavailable [phone] Mare Wilkes MD Unavailable [phone] Rosaura Enriquez MD Unavailable [phone] Nano Panda MD Primary Care Provider [phone] Allergies Active Allergy Reactions Criticality Noted Date [...] Sex Assigned at Female 03/29/2021 12:51 PM FACING SLITTER Legal Sex Female 5:15 AM FACING SLITTER Gender Identity Female 03/29/2021 12:51 PM FACING SLITTER Sexual Orientation Straight 03/29/2021 12 :51 PM FACING SLITTER Last Filed Vital Signs Vital Sign Reading Time Taken Comments Blood Pressure 115/78 05/28/2023 8:02 PM FACING SLITTER Pulse 92 05/28/2023 8:02 PM FACING SLITTER Temperature 37.1 C (98.7 F) 05/28/2023 8:02 PM FACING SLITTER Respiratory Rate 12 05/28/2023 8:02 PM FACING SLITTER Oxygen Saturation 95% 05/28/2023 8:02 PM FACING SLITTER Inhaled Oxygen Concentration - - Weight 72.7 kg (160 lb 4.4 oz) 05/28/2023 9:28 A M FACING SLITTER Height 167.6 cm (5' 6) 05/28/2023 9:28 AM FACING SLITTER Body Mass Index 25.87 05/28/2023 9:28 AM FACING SLITTER Plan of Treatment Health Maintenance Due Date [...] this topic Medical Devices Implanted Type Area Manager House Device Identifier Shelf Expiration Date Model / Serial / Lot Duraflex Suturable Dural Graft 4cm X 5cm Implanted:Qty: 1 on 05/28/2023 by Rosaura Enriquez MD at [facility] Graft Right: Face [employer] [id number] 12/04/2027 [id number] / [id number] / [id number] Eye Imp Lid Weight Lid-Chain Henderson 1.0gm 28-1510 - [id number] Implanted:Qty: 1 on 05/28/2023 by Rosaura Enriquez MD at [facility] Lens/Eye Implant Right: Eye [employer] 10/31/2027 28-1510 / / [id number] Procedures Procedure Name Priority Date/Time Associated Diagnosis Comments NE EVALUATION OF SPEECH SOUND PRODUCTION Routine 05/19/2024 2:32 PM FACING SLITTER 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 Dysarthria Oral phase dysphagia ABSTRACT PAP (HIM EXTERNAL RESULT) Routine 09/11/2016 COMPREHENSIVE METABOLIC PANEL STAT 03/05/2016 2:34 PM CDT from Last 3 Months or Most Recently Relevant to Health Maintenance Results * ABSTRACT PAP-NO CHARGE (09/11/2016) PAP-ABSTRACT See Scanned Document [facility] Comment:NIL 09/11/2016 Narrative [facility] - 09/11/2016 See Care Everywhere-[facility] us Provider Outside LAB - HIM EXTERNAL RESULT Final Result [facility] [address] * (ABNORMAL) Comprehensive metabolic panel (03/05/2016 2:34 PM CDT) Sodium 138 133 - 144 mmol/L [facility] Potassium 3.5 3.4 - 5.3 mmol/L [facility] Chloride 106 94 - 109 mmol/L [facility] Carbon Dioxide 24 20 - 32 mmol/L [facility] Anion Gap 8 3 - 14 mmol/L [facility] Glucose 88 70 - 99 mg/dL [facility] Urea Nitrogen 8 7 - 30 mg/dL [facility] Creatinine 0.67 0.52 - 1.04 mg/dL [facility] GFR Estimate >90 Non GFR Calc >60 mL/min/1. 7m2 [facility] GFR Estimate If Black >90 GFR Calc >60 mL/min/1. 7m2 [facility] Calcium 8.2(L) 8.5 - 10.1 mg/dL [facility] Bilirubin Total 0.4 0.2 - 1.3 mg/dL [facility] Albumin 3.8 3.4 - 5.0 g/dL [facility] Protein Total 7.0 6.8 - 8.8 g/dL [facility] Alkaline Phosphatase 68 40 - 150 U/L [facility] ALT 21 0 - 50 U/L [facility] AST 17 0 - 45 U/L [facility] Blood specimen (specimen) 03/05/2016 2:34 PM CDT 03/05/2016 2:48 PM CDT us Jayla Duarte MD LAB - BLOOD ORDERABLES Final Res ult [facility] [address] [place] [address], [facility] [[email or web address]] [phone] from Last 3 Months or Most Recently Relevant to Health Maintenance Insurance [employer] INSURED WC RISK ADMINSTRATION [facility] [employer] Care Teams Hospitalist Nocturnist Physician Relationship Specialty Start Date End Date Nano Panda MD [address] [place] [address] PCP - General Family Medicine 05/14/23 Rosaura Enriquez MD [address] [place] [address] Facial Plastic and Reconstructive Surgery 11/23/22 Mare Wilkes MD [address] [place] [address] [id number] Physician Psychiatry & Neurology - Child & Adolescent Psychiatry 11/23/22 Rosaura Enriquez MD [address] [place] [id number] Assigned Surgical Provider 11/24/22
--- OUTSIDE RECORDS SUMMARY | 2024-08-04 20:18 | XMS_ITS | Clinical Summary ---
Author Organization [facility] Address [address] [place] [id number] Care Team Providers Care Anthropology Professor Name Role Phone Nano Panda MD Primary [...] cervical 12/12 Overview (05/26/2019): 11/2010 ASCUS/HPV+ 12/2010 [place] No biopsies 10/2012 NIL 10/2013 NIL 05/2020 [...] Immunization Administration Dates Next Due COVID-19 vaccine (For Your Imagination 30mcg/0.3mL) 12YO+ XIOMARA-SUCROSE PF, MDV 08/08/2021,07/11/2021 DTP [...] PM CDT Legal Sex Female 6:05 AM NEUROLOGIST Gender Identity Female 11/17/2019 12:04 PM CDT Sexual Orientation Straight 11/17/2019 12 :04 PM CDT 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 Not on file Not [...] Comments Blood Pressure 112/76 05/10/2023 7:39 AM NEUROLOGIST Pulse 73 05/10/2023 7:39 AM NEUROLOGIST Temperature 36.7 C (98.1 F) 09/07/2022 12:50 PM CDT Respiratory Rate 16 09/07/2022 12:50 PM CDT Oxygen Saturation 96% 05/10/2023 7:39 AM NEUROLOGIST Inhaled Oxygen Concentration - - Weight 73.5 kg (162 lb) 05/10/2023 7:39 AM NEUROLOGIST Height 168 cm (5' 6.14) 05/10/2023 7:39 AM NEUROLOGIST Body Mass Index 26.04 05/10/2023 7:39 AM NEUROLOGIST Plan of Treatment Health Maintenance Due Date [...] Completed 10/08/2012 Medical Devices Implanted Type Area Emt Paramedic Device Identifier Shelf Expiration Date Model / Serial / Lot Screw Neuro 4mm Matrixneuro Slf Drill Titnm - [id number] Implanted:Qty: 8 on 03/19/2022 by Melissa De Leon MBChB at [facility] Right: Cranium Leilani [employer] Leilani [employer] CMF [id number] 4.01 / / Plate Facial 70x1.5mm Synthes Midface Mesh Contourable - [id number] Implanted:Qty: 1 on 03/19/2022 by Melissa De Leno MBChB at [facility] Right: Cranium J And J Depuy CMF [id number] / / Procedures Procedure Name Priority Date/Time Associated Diagnosis Comments LITIGATION CLAIM REPRESENTATIVE THIN PREP PAP SCREEN IMAGED Routine 05/14/2019 9:50 AM NEUROLOGIST Pap smear for cervical cancer screening ANTI HIV 1/2 Routine 01/02/2011 3:35 PM CDT Supervision of other normal (HC) from Last 3 Months or Most Recently Relevant to Health Maintenance Results * LITIGATION CLAIM REPRESENTATIVE THIN PREP PAP SCREEN IMAGED (05/14/2019 9:50 AM NEUROLOGIST) Case Report Gynecologic Cytology Report Case: [id number] Authorizing Provider: Mary Lpoez PA Collected: 05/14/2019 0950 Ordering Location: [facility] Received: 05/14/2019 1017 Clinic First Screen: Li Mirza Specimen: LITIGATION CLAIM REPRESENTATIVE ThinPrep Vial Screening, Cervical 05/25/2019 12:12 PM NEUROLOGIST [facility] INTERPRETATION/ RESULT NEGATIVE FOR INTRAEPITHELIAL LESION OR MALIGNANCY (NIL) (none) 05/25/2019 12:12 PM NEUROLOGIST [facility] at 1212 NEUROLOGIST SPECIMEN ADEQUACY Satisfactory for evaluation Endocervical component present 05/25/2019 12:12 PM NEUROLOGIST [facility] HPV REQUEST HPV and PAP 05/25/2019 12:12 PM NEUROLOGIST [facility] Date of LMP 04/27/19 05/25/2019 12:12 PM NEUROLOGIST [facility] Last Pap Date 09/11/16 05/25/2019 12:12 PM NEUROLOGIST [facility] Last Pap Result NIL 0 12:12 PM NEUROLOGIST [facility] Abnormal Pap or [place]ett[place] Bx in last 5 years No 05/25/2019 12:12 PM NEUROLOGIST [facility] Menstrual Status Regular Periods 05/25/2019 12:12 PM NEUROLOGIST [facility] Pettus Bx Done Today No 05/25/2019 12:12 PM NEUROLOGIST [facility] Additional Information None given 05/25/2019 12:12 PM NEUROLOGIST [facility] Comment: Cytology is screened at [facility] - [address], [place] [address] [address] [facility] - [address], [place] [address] and [facility] - [address] [place] [address] Interpreted at [facility] - [address], [place] [address] Automated Review Successful 05/25/2019 12:12 PM NEUROLOGIST [facility] Comment:Specimen processed s uccessfully by automated cementer hand device, ThinPrep Imaging System, [employer] ANCILLARY TESTING LITIGATION CLAIM REPRESENTATIVE HPV Ordered, Please see separate report 05/25/2019 12:12 PM NEUROLOGIST [facility] Note The pap test is [...] pre-malignant and malignant lesions. 05/25/2019 12:12 PM NEUROLOGIST [facility] Other (Cervical) Non-Blood / Unknown 05/14/2019 9:50 AM NEUROLOGIST 05/14/2019 10:17 AM NEUROLOGIST us [facility]Y Final R esult [facility] [address] [place] [address], [place] * ANTI HIV 1/2 (01/02/2011 3:35 PM CDT) ANTI HIV 1/2 Non-reacti ve [facility] Blood specimen (specimen) BLOOD SPECIMEN / Unknown 01/02/2011 3:35 PM CDT 01/02/2011 3:29 PM CDT us Nano Panda MD SEND OUTS Fi nal Result [facility] INTERNAL ZIP [address] [address] from Last 3 Months or Most Recently Relevant to Health Maintenance Insurance [id number] [place] [address] [phone] (Home) ATTN: BRIANDA FLORES [address] [place] [address] * Guarantor: [employer] [facility] Account Type Relation to Patient Date of Phone Billing Address [facility] [address] [place] [address] * Guarantor: [employer] Account Type Relation to Patient Date of Phone Billing Address [facility] [employer] [address] [place] [address] Advance Directives Documents on File Type Date Recorded 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
[2024-08-04 20:31] VITALS: BP 149/91; PULSE 89; RESP 16; TEMP 36.8; O2SAT 99
[2024-08-04 21:00] VITALS: BP 140/98; PULSE 84; RESP 16; O2SAT 99
== END 2024-08-04 21:04 | disposition home or self-care (01) ==
PROVIDERS: Emergency Provider Student in an Organized Health Care Education/Training Program; PCP Family Medicine
DX: S13.4XXA Sprain of ligaments of cervical spine, initial encounter (principal); V49.9XXA Car occupant (driver) (passenger) injured in unspecified traffic accident, initial encounter; R07.89 Other chest pain
CPT/HCPCS: 36415; 70450; 71260; 72125; 74177; 80048; 84484; 85025; 93005; 96374; 99284; 99285; 99291; G0390; J1885; Q9967

== ENCOUNTER 2024-08-04 19:34 | Outpatient (CLI) | payer OTHER, SELFPAY | END 2024-08-04 19:35 | disposition home or self-care (01) | PROVIDERS: PCP Family Medicine; Visit Provider Student in an Organized Health Care Education/Training Program | DX: S19.9XXA Unspecified injury of neck, initial encounter (principal); S29.9XXA Unspecified injury of thorax, initial encounter; V48.0XXA Car driver injured in noncollision transport accident in nontraffic accident, initial encounter; Y92.410 Unspecified street and highway as the place of occurrence of the external cause | CPT/HCPCS: A0425; A0427 ==